=== PATIENT | female | born 1985 | race African-American/Black ===

== ENCOUNTER 2017-08-07 19:14 | Emergency (ER) | payer OTHER ==
[~2017-08-07] VITALS: Ht 167.6 cm; Wt 70.6 kg
[~2017-08-07 19:14] MED LIST: MOTRIN800 MG PO; NORCO 7.5/321 TABLET PO; VALIUM5 MG PO; ZOFRAN ODT4 MG PO
[2017-08-07 19:30] VITALS: BP 107/55
== END 2017-08-07 21:46 | disposition left against medical advice (07) ==
LOC: EME 19:14
DX: R03.1 Nonspecific low blood-pressure reading (principal); R51 Headache; R42 Dizziness and giddiness; H53.8 Other visual disturbances; Z53.21 Procedure and treatment not carried out due to patient leaving prior to being seen by health care provider
CPT/HCPCS: 99281; 99282

== ENCOUNTER 2017-10-01 20:25 | Emergency (ER) | payer OTHER ==
[~2017-10-01] VITALS: Ht 167.6 cm; Wt 67.7 kg
[2017-10-01 22:07] LABS: HEMATOCRIT 38.6 % (36.0-46.0); MCH 30.7 PG (29.0-34.0); MCHC 34.5 G/DL (30.0-36.0); MCV 89.1 FL (83-99); MEAN PLAT.VOLUME 11.6 uM^3 (9.5-12.4); PLATELET COUNT 194 K/uL (156-360); RBC DIS.WIDTH-CV 12.1 % (11.8-14.6); RBC DIS.WIDTH-SD 39.7 % (39-53); RED BLOOD COUNT 4.33 M/uL (3.80-5.20); WHITE BLOOD COUNT 6.9 K/uL (4.1-10.2)
[2017-10-01 22:18] LABS: CHLORIDE 108 mEq/L (99-109); POTASSIUM 3.8 mEq/L (3.7-5.4); SODIUM 139 mEq/L (136-147)
[2017-10-01 22:19] LABS: GLUCOSE 90 mg/dL (70-99)
[2017-10-01 22:21] LABS: ANION GAP 8 MEQ/L (2-14)
[2017-10-01 22:23] LABS: GFR ESTIMATE (CALCULATED) > 59 mL/min/
[2017-10-01 22:24] LABS: UREA NITROGEN (BUN) 11 mg/dL (9-23)
[2017-10-01 22:48] LABS: ADD MIUA? YES; BILIRUBIN NEGATIVE; BLOOD NEGATIVE; COLOR YELLOW ((YELLOW)); GLUCOSE (STRIP) NEGATIVE; KETONES NEGATIVE; LEUKOCYTES LARGE; NITRITE NEGATIVE; PROTEIN (STRIP) 30; SPECIFIC GRAVITY 1.032 (1.000-1.030)
[2017-10-01 22:54] LABS: BACTERIA RARE /HPF; CALCIUM OXALATE CRYSTALS 1+ /HPF; EPITHELIAL CELLS 3+ /HPF; MUCUS TRACE /LPF; RED BLOOD CELLS 0-5 /HPF (0-5); UCUL ADDED? YES; WHITE BLOOD CELLS 30-40 /HPF (0-5)
[2017-10-02 00:07] VITALS: BP 108/56
== END 2017-10-02 00:10 | disposition home or self-care (01) ==
LOC: EME 20:25
PROVIDERS: Physician Assistant Medical
DX: G43.909 Migraine, unspecified, not intractable, without status migrainosus (principal)
CPT/HCPCS: 80048; 81003; 84702 90; 85027; 87086; 93005; 99281; 99285; J0780; J1200; J1885

== ENCOUNTER 2017-12-02 16:44 | Emergency (ER) | payer OTHER ==
[~2017-12-02] VITALS: Ht 167.6 cm; Wt 68.8 kg
[2017-12-02 17:58] LABS: APPEARANCE CLOUDY ((CLEAR)); BILIRUBIN NEGATIVE; BLOOD NEGATIVE; COLOR YELLOW ((YELLOW)); GLUCOSE (STRIP) NEGATIVE; KETONES NEGATIVE; LEUKOCYTES LARGE; NITRITE NEGATIVE; PROTEIN (STRIP) NEGATIVE; SPECIFIC GRAVITY 1.023 (1.000-1.030)
[2017-12-02 18:03] LABS: BACTERIA RARE /HPF; EPITHELIAL CELLS 2+ /HPF; MUCUS TRACE /LPF; RED BLOOD CELLS 0-5 /HPF (0-5); WHITE BLOOD CELLS 15-20 /HPF (0-5)
[2017-12-02] MEDS ORDERED: BACTRIM,SEPT1 TABLET PO (18:43)
[2017-12-02 18:48] VITALS: BP 102/57
== END 2017-12-02 18:49 | disposition home or self-care (01) ==
LOC: EME 16:44
PROVIDERS: Physician Assistant
DX: N39.0 Urinary tract infection, site not specified (principal)
CPT/HCPCS: 81003; 87086; 87502; 99281; 99284